=== PATIENT | female | born 1990 ===

== ENCOUNTER 2023-11-01 11:17 | Emergency (ER) | payer SELFPAY ==
--- NOTE | 2023-11-01 11:30 | PC.NURSE ---
no answer when called from waiting room
--- NOTE | 2023-11-01 11:44 | PC.NURSE ---
Called for triage at this time with no answer.
== END 2023-11-02 04:35 | disposition left against medical advice (07) ==
DX: Z53.21 Procedure and treatment not carried out due to patient leaving prior to being seen by health care provider (principal)
CPT/HCPCS: 99199